=== PATIENT | male | born 1960 | race Caucasian/White ===

== ENCOUNTER → 2024-02-07 09:19 | Outpatient (REF) | payer BC, SELFPAY | LOC: HWLAB 09:19 | PROVIDERS: ATTENDING PHYSICIAN Nurse Practitioner Pediatrics; FAMILY PHYSICIAN Family Medicine | DX: M13.852 Other specified arthritis, left hip (principal) | CPT/HCPCS: 73502 ==

== ENCOUNTER → 2025-01-14 09:22 | Outpatient (REF) | payer BC, SELFPAY | LOC: MRI 3T 09:22 | PROVIDERS: ATTENDING PHYSICIAN Nurse Practitioner Family; FAMILY PHYSICIAN Family Medicine | DX: S83.200A Bucket-handle tear of unspecified meniscus, current injury, right knee, initial encounter (principal); M25.561 Pain in right knee | CPT/HCPCS: 73721 ==